=== PATIENT | female | born 1965 | race Asian ===

== ENCOUNTER → 2017-03-23 | Outpatient (CLI) | payer OTHER ==
[~2017-03-23] MED LIST: LORTAB 5/500 TA1 TA1 PO
--- NOTE | ~2017-03-23 | MY29 ---
[facility] A Service of [facility] RADIOLOGY TEXT RESULTS PATIENT: YE ROSARIO LOCATION: [facility] : 67 UNIT #: [id number] AGE: [address]: Kenn Wellington MD SEX: F ORDER DR: [id number] [facility] [address] [place], [place] [address] [id number] O MR#: [id number] Acc #: [id number] NAME: YE ROSARIO : 1965 SEX: F STUDY DATE/TIME: 03/23/2017 11:27 UNIT: [facility] ROOM: STUDY DESCRIPTION: MY BHARTI SCREENING W/ CAD BILAT Attending Physician: Kenn Wellington M.D. Referring Physician: Kenn Wellington M.D. Ordering Physician: Kenn Wellington M.D. Primary Care Physician: Kenn Wellington M.D. MEDICAL IMAGING REPORT This report is preliminary unless electronic signature is present EXAM Digital screening mammogram 03/23/2017 HISTORY 59-year-old woman. No risk elevation. Annual screen. COMPARISON Mammograms date to 01/01/2007 with most recent 03/21/2016. FINDINGS Digital imaging of each breast was completed utilizing screening protocol. Review includes FDA-approved CAD device. Breast parenchyma remains moderately dense bilaterally with a combination fibroglandular parenchyma and a fibronodular pattern. I see no suspicious mass characteristics. There are no interval occurring microcalcifications and no architectural deformity. IMPRESSION Stable benign mammogram. Annual screening recommended. Patient's over the age of 40 are entered into a reminder system with target due date for the next mammogram. BIRADS: 2 Benign findings Dictated by... Omid Castillo M.D. THIS IS AN ELECTRONICALLY VERIFIED REPORT Omid Castillo M.D. at 03/23/2017 3:33 PM KAHLIL/blanka [facility] A Service of [facility] RADIOLOGY TEXT RESULTS PATIENT: YE ROSARIO LOCATION: [facility] : 67 UNIT #: [id number] AGE: [address]: Kenn Wellington MD SEX: F ORDER DR: TD: 03/23/2017 14:35 JOB #: [id number] MEDICAL IMAGING REPORT Page 1 of 1 COPY
== END | disposition home or self-care (01) ==
LOC: CWCC 11:06
DX: Z12.31 Encounter for screening mammogram for malignant neoplasm of breast (principal)
CPT/HCPCS: G0202